=== PATIENT | male | born 1950 | race Caucasian/White ===

== ENCOUNTER → 2017-09-13 | Outpatient (CLI) | payer MEDICARE ==
[~2017-09-13] MED LIST: ASPIRIN81 M2 PO; CARVEDILOL6.25 MG PO; FUROSEMIDE 40 M40 M1 PO; K-DUR 20 MEQ T20 MEQ PO; LISINOPRIL10 MG PO; PRAVASTATIN SOD20 MG PO
--- NOTE | 2017-09-13 15:09 | 2DMMODE ---
[place] [address] 2 D/M-MODE ECHOCARDIOGRAM Name: LESLY COOLEY Room: [facility]#: [id number] Admission: 09/13/17 Attend Phys: Helder Ledesma, Discharge: Date of : 50 Date of Service: 09/13/17 1508 Report #: [id number] THIS REPORT FOR: //name// APPROVED REPORT Study performed: 09/13/2017 09:28:28 EXAM: Comprehensive 2D, Doppler, and color-flow Echocardiogram Patient Location: Out-Patient Status: routine BSA: 1.81 HR: 75 bpm BP: 108/80 mmHg Other Information Study Quality: Good Indications Cardiomyopathy 2D Dimensions LVEF(%): 70.54 (>50%) IVSd: 18.55 (7-11mm) LVOT Diam: 20.57 (18-24mm) LVDd: 46.92 mm PWd: 12.49 (7-11mm) Ascending Ao: 30.74 (22-36mm) LVDs: 28.18 (25-40mm) Aortic Root: 33.15 mm Harvey's LVEF: 70.54 % Volumes Left Atrial Volume (Systole) LA ESV Index: 22.30 mL/m2 Aortic Valve AoV Peak Manpreet.: 1.28 m/s AO Peak Gr.: 6.59 mmHg LVOT Max P.47 mmHg AO Mean Gr.: 3.52 mmHg LVOT Mean P.12 mmHg LVOT Max V: 0.79 m/s AO V2 VTI: 22.27 cm LVOT Mean V: 0.48 m/s OZ (VTI): 2.18 cm2 LVOT V1 VTI: 14.60 cm Mitral Valve E/A Ratio: 0.61 MV Decel. Time: 457.90 [place] [address] 2 D/M-MODE ECHOCARDIOGRAM Name: LESLY COOLEY Room: [facility]#: [id number] Admission: 09/13/17 Attend Phys: Helder Ledesma, Discharge: Date of : 50 Date of Service: 09/13/17 1508 Report #: [id number] MV E Max Manpreet.: 0.38 m/s MV PHT: 132.79 ms MVA (PHT): 1.66 cm2 TDI E/Lateral E': 2.38 E/Medial E': 7.60 Medial E' Manpreet.: 0.05 m/s Lateral E' Manpreet.: 0.16 m/s Pulmonary Valve PV Peak Manpreet.: 0.76 m/s PV Peak Gr.: 2.33 mmHg Tricuspid Valve TR Peak Gr.: 22.26 mmHg RVSP: 27.26 mmHg Left Ventricle The left ventricle is normal size. There is normal LV segmental wall motion. Mild concentric left ventricular hypertrophy. The left ventricular systolic function is normal. The left ventricular ejection fraction is within the normal range. LVEF is 55%. Grade I - abnormal relaxation pattern. Right Ventricle The right ventricle is normal size. The right ventricular systolic function is normal. Atria The left atrium size is normal. The right atrium size is normal. Aortic Valve Aortic valve leaflets are mildly thickened. Mild aortic regurgitation. There is no aortic valvular stenosis. Mitral Valve The mitral valve is normal in structure. Mild mitral regurgitation. No evidence of mitral valve stenosis. Tricuspid Valve The tricuspid valve is normal in structure. Mild tricuspid regurgitation. The RVSP is __27.3 mmHg. Pulmonic Valve The pulmonary valve is normal in structure. [place] [address] 2 D/M-MODE ECHOCARDIOGRAM Name: LESLY COOLEY Katia Room: [facility]#: [id number] Admission: 09/13/17 Attend Phys: Helder Ledesma, Discharge: Date of : 50 Date of Service: 09/13/17 1508 Report #: [id number] Great Vessels The aortic root is normal in size. IVC is normal in size and collapses with >50% inspiration Pericardium There is no pericardial effusion. <Conclusion> The left ventricle is normal size. Mild concentric left ventricular hypertrophy. The left ventricular systolic function is normal. The left ventricular ejection fraction is within the normal range. LVEF is 55%. Grade I - abnormal relaxation pattern. The right ventricle is normal size. The left atrium size is normal. Aortic valve leaflets are mildly thickened. Mild aortic regurgitation. There is no aortic valvular stenosis. The mitral valve is normal in structure. Mild mitral regurgitation. The tricuspid valve is normal in structure. Mild tricuspid regurgitation. The RVSP is __27.3 mmHg. IVC is normal in size and collapses with >50% inspiration There is no pericardial effusion. There is normal LV segmental wall motion. <ELECTRONICALLY SIGNED> By: David Maldonado MD, FACC 09/13/17 1508 1508 1508 David Maldonado MD, FACC /INF
== END ==
LOC: M.CRD 09:18
DX: I08.3 Combined rheumatic disorders of mitral, aortic and tricuspid valves (principal); I42.8 Other cardiomyopathies

== ENCOUNTER → 2019-01-08 | Outpatient (CLI) | payer MEDICARE ==
--- NOTE | 2019-01-08 14:49 | 2DMMODE ---
[place] [address] 2 D/M-MODE ECHOCARDIOGRAM Name: LESLY COOLEY Room: [facility]#: [id number] Admission: 01/08/19 Attend Phys: Helder Ledesma, Discharge: Date of : 50 Date of Service: 01/08/19 1449 Report #: [id number] THIS REPORT FOR: //name// APPROVED REPORT Study performed: 01/08/2019 07:56:43 EXAM: Comprehensive 2D, Doppler, and color-flow Echocardiogram Patient Location: Out-Patient BSA: 1.75 HR: 84 bpm BP: 108/80 mmHg Other Information Study Quality: Good Indications Cardiomyopathy 2D Dimensions IVSd: 13.10 (7-11mm) LVOT Diam: 20.24 (18-24mm) LVDd: 42.76 mm PWd: 11.87 (7-11mm) Ascending Ao: 27.87 (22-36mm) LVDs: 30.12 (25-40mm) Aortic Root: 25.90 mm Volumes Left Atrial Volume (Systole) LA ESV Index: 29.20 mL/m2 Aortic Valve AoV Peak Manpreet.: 1.34 m/s AO Peak Gr.: 7.23 mmHg LVOT Max P.65 mmHg AO Mean Gr.: 3.93 mmHg LVOT Mean P.17 mmHg LVOT Max V: 0.81 m/s AO V2 VTI: 23.71 cm LVOT Mean V: 0.49 m/s OZ (VTI): 1.80 cm2 LVOT V1 VTI: 13.24 cm Mitral Valve E/A Ratio: 0.59 MV Decel. Time: 414.39 ms MV E Max Manpreet.: 0.39 m/s MV PHT: 120.17 ms MVA (PHT): 1.83 [place] [address] 2 D/M-MODE ECHOCARDIOGRAM Name: LESLY COOLEY Room: [facility]#: [id number] Admission: 01/08/19 Attend Phys: Helder Ledesma, Discharge: Date of : 50 Date of Service: 01/08/19 1449 Report #: [id number] TDI E/Lateral E': 3.90 E/Medial E': 5.57 Medial E' Manpreet.: 0.07 m/s Lateral E' Manpreet.: 0.10 m/s Pulmonary Valve PV Peak Manpreet.: 1.12 m/s PV Peak Gr.: 5.06 mmHg Tricuspid Valve RAP Estimate: 5.00 mmHg TR Peak Gr.: 25.60 mmHg RVSP: 30.60 mmHg PA Pressure: 30.60 mmHg Left Ventricle The left ventricle is normal size. There is mild left ventricular systolic dyssynergy consistent with underlying bundle branch block Mild concentric left ventricular hypertrophy. Left ventricular systolic function is Preserved. LVEF is 55-60%. Transmitral Doppler flow pattern suggests impaired LV relaxation. Right Ventricle The right ventricle is normal size. The right ventricular systolic function is normal. Atria The left atrium size is normal. The right atrium size is normal. Aortic Valve Aortic valve leaflets are mildly thickened. Mild aortic regurgitation. There is no aortic valvular stenosis. Mitral Valve The mitral valve is normal in structure. Trace mitral regurgitation. No evidence of mitral valve stenosis. Tricuspid Valve The tricuspid valve is normal in structure. Mild tricuspid regurgitation. The RVSP is 30-35 mmHg. Pulmonic Valve The pulmonary valve is normal in structure. There is no pulmonic valvular regurgitation[place] [address] 2 D/M-MODE ECHOCARDIOGRAM Name: LESLY COOLEY Room: [facility]#: [id number] Admission: 01/08/19 Attend Phys: Helder Ledesma, Discharge: Date of : 50 Date of Service: 01/08/19 1449 Report #: [id number] The aortic root is normal in size. IVC is normal in size and collapses >50% with inspiration. Pericardium There is no pericardial effusion. <Conclusion> The left ventricle is normal size. Mild concentric left ventricular hypertrophy. Left ventricular systolic function is Preserved. LVEF is 55-60%. Transmitral Doppler flow pattern suggests impaired LV relaxation. There is mild left ventricular systolic dyssynergy consistent with underlying bundle branch block Aortic valve leaflets are mildly thickened. Trace mitral regurgitation. Mild tricuspid regurgitation. The RVSP is 30-35 mmHg. IVC is normal in size and collapses >50% with inspiration. <ELECTRONICALLY SIGNED> By: Helder Ledesma MD, FACC 01/08/19 1449 1449 1449 Helder Ledesma MD, FACC /INF
== END ==
LOC: M.CRD 07:55
DX: I08.2 Rheumatic disorders of both aortic and tricuspid valves (principal)

== ENCOUNTER 2019-06-13 11:39 | Emergency (ER) | payer MEDICARE ==
[~2019-06-13] VITALS: Ht 167.6 cm; Wt 63.5 kg
[2019-06-13] MEDS ORDERED: CARVEDILOL12.5 MG PO (11:54)
[2019-06-13] MEDS ORDERED: METFORMIN HCL500 M3 PO (11:54)
[2019-06-13] MEDS ORDERED: TRIAMTERENE/HCT1 CA1 PO (11:54)
[2019-06-13] MEDS ORDERED: LISINOPRIL20 MG PO (11:54)
[2019-06-13] MEDS ORDERED: NEURONTIN100 MG PO (11:55)
[2019-06-13] MEDS ORDERED: MAPAP500 MG PO (11:55)
[2019-06-13 12:00] LABS: URINE BILIRUBIN NEGATIVE (Negative); URINE BLOOD 2+ (Negative); URINE CLARITY CLEAR; URINE COLOR YELLOW; URINE GLUCOSE-RANDOM NEGATIVE (Negative); URINE KETONES NEGATIVE (Negative); URINE LEUKOCYTES-REFLEX 1+ (Negative); URINE NITRITE-REFLEX NEGATIVE (Negative); URINE PROTEIN 2+ (Negative); URINE UROBILINOGEN 0.2 E.U./dl (0.2-1.0)
[2019-06-13 12:10] LABS: ABSOLUTE BASOPHILS 0.1 thou/uL (0.0-0.2); ABSOLUTE LYMPHOCYTES 0.9 thou/uL (0.8-5.3); ABSOLUTE MONOCYTES 0.5 thou/uL (0.0-1.2); ABSOLUTE NEUTROPHILS 7.4 thou/uL (1.6-8.1); BASOPHILS 0.6 %; EOSINOPHILS 0.5 %; HEMATOCRIT 33.4 % (42.0-52.0); HEMOGLOBIN 11.6 gm/dL (14.0-18.0); LYMPHOCYTES 9.9 %; MCH 30.8 pg (26.0-34.0); MCHC 34.9 g/dL (28.0-37.0); MCV 88.2 fL (80.0-100.0); MONOCYTES 5.4 %; MPV 6.8 fl. (7.2-11.1); NUCLEATED RBCS 0 /100WBC; PLATELET COUNT* 348 thou/uL (150-400); POLYS 83.6 %; RBC 3.79 mil/uL (4.50-6.00); RDW-CV 13.4 % (10.5-14.5); WBC 8.9 thou/uL (4.0-11.0)
[2019-06-13 12:10] LABS: SQUAMOUS NONE SEEN /LPF (0-3); WBC CLUMPS Few (None Seen)
[2019-06-13 12:12] LABS: CRYSTALS None Seen /LPF (None Seen); HYALINE CASTS 0-3 Few /LPF (None Seen); MUCUS 0-3 Light strn/LPF (None Seen)
[2019-06-13 12:17] LABS: CALCIUM 8.5 mg/dL (8.5-10.1); CREATININE 1.2 mg/dL (0.6-1.3); POTASSIUM 4.5 mmol/L (3.5-5.1)
[2019-06-13 12:21] LABS: ALBUMIN 3.4 g/dL (3.4-5.0); TOTAL BILIRUBIN 0.4 mg/dL (<0.1-1.0); TOTAL PROTEIN 6.9 g/dL (6.4-8.2)
[2019-06-13] MEDS ORDERED: KEFLEX500 M2 PO (12:59)
[2019-06-13] MEDS ORDERED: FLOMAX0.4 MG PO (13:04)
[2019-06-13 13:07] VITALS: BP 121/75
== END 2019-06-13 13:08 | disposition home or self-care (01) ==
LOC: M.ERS 11:39
PROVIDERS: Emergency Medicine
DX: N39.0 Urinary tract infection, site not specified (principal); Z98.890 Other specified postprocedural states

== ENCOUNTER → 2019-08-12 | Day surgery (SDC) | payer MEDICARE ==
[~2019-08-12] MED LIST changes: +ASA81BEC PO; +CARVEDILOL12.5 MG PO; +FLOMAX0.4 MG PO; +KEFLEX500 M2 PO; +LISINOPRIL20 MG PO; +MAPAP500 MG PO; +METFORMIN HCL500 M3 PO; +NEURONTIN100 MG PO; +OXAYDO5 MG PO; +TRIAMTERENE/HCT1 CA1 PO
--- NOTE | ~2019-08-12 | OP ---
[address] [address] OPERATIVE REPORT Name: LESLY COOLEY Room: [facility]#: [id number] Admission: 08/12/19 Attend Phys: Pablo Gallegos DO Discharge: Date of : 50 Report #: [id number] THIS REPORT FOR: //name// cc: Ja Mckeon Karl ~ THIS REPORT FOR: //name// CC: Pablo Mckeon DATE OF SERVICE: 08/12/2019 REFERRING PHYSICIAN: Dr. Ja Mckeon. PREOPERATIVE DIAGNOSIS: Left inguinal hernia. POSTOPERATIVE DIAGNOSIS: Left and right direct and indirect inguinal hernias. PROCEDURE: A da Zonia robotic-assisted laparoscopic bilateral inguinal hernia repair with mesh. SURGEON: Pablo Gallegos DO SHIRT MAKER: Gab Baron DO, PGY3, resident. SECOND CUT IN WORKER: Student, Dr. Jolanta Orosco, MS3. ANESTHESIA: General endotracheal. ESTIMATED BLOOD LOSS: Less than 20 mL. COMPLICATIONS: None. DESCRIPTION OF PROCEDURE: After obtaining proper consents and discussing risks and complications with the patient, he was taken to the operating room, laid in the supine position, administered general endotracheal anesthetic. He was then prepped and draped in the usual sterile fashion. A timeout was performed. We confirmed the appropriate patient and procedure. Preoperative antibiotics were given. SCDs were in place. The site had been marked in the preoperative holding area as well. We then made a small supraumbilical skin incision with #11 scalpel blade. This was carried down through the skin into the subcutaneous tissue using electrocautery for hemostasis. Once the fascia was encountered, it was incised along the midline, grasped and elevated with Ashlyn clamps. The peritoneum was then bluntly opened using a hemostat. The peritoneum was bluntly opened using a hemostat. We then placed 2-0 Vicryl sutures in a [id number] [address] OPERATIVE REPORT Name: LESLY COOLEY Room: [facility]#: [id number] Admission: 08/12/19 Attend Phys: Pablo Gallegos, DO Discharge: Date of : 50 Report #: [id number] fashion to secure the da Zonia camera port, which was then inserted and insufflation was begun. Once insufflation was complete, full visual inspection of the anterior abdominal organs was performed. This immediately revealed a large indirect left inguinal hernia that did contain a sigmoid colon. I was able to manually reduce the loop of sigmoid colon that was up into the hernia without difficulty. After the patient was paralyzed and under direct vision, we then identified that there was also a direct inguinal hernia on this side. We also identified a smaller direct and small indirect inguinal hernia on the patient's right side. Since we had discussed repair of bilateral hernias if he did have them, we proceeded with a da Zonia robotic-assisted bilateral hernia repair by placing another 8.5 mm trocar in the left upper quadrant, a 12 mm trocar was placed in the right upper quadrant. We then docked the da Zonia robot. Once the robot was docked, the camera was inserted. We then placed monopolar scissors in the right upper quadrant bipolar fenestrated grasper in the left upper quadrant. I then broke scrub and went on console. Once on console, I was able to open the peritoneum from the median umbilical ligament laterally to the ASIS first on the left side. I then dissected all the way down medially in the preperitoneal space to the pubic ramus. We did identify a smaller direct inguinal hernia in this area, there was a very large indirect inguinal hernia and I had to dissect laterally first and then with my surgical supply assistant using bimanual palpation to reduce the hernia sac. I was able to dissect the hernia sac with some difficulty. We did tear the hernia sac at one point and left that for repair at the end of the procedure. I was able to reduce the entire hernia sac back and create a large enough space for a large Bard 3DMax mesh. I then turned my attention to the right side. Similarly, I opened the peritoneum from the median umbilical ligament laterally to the ASIS. I was able to dissect all the way down to the pubic ramus and again find a small direct inguinal hernia. I then continued my dissection laterally until I identified the spermatic cord and dissected the indirect inguinal hernia sac free from the cord. I then continued the dissection laterally all the way out to the ASIS. There was no cord lipoma noted on the right side. There was a small cord lipoma on the left side, which was reduced back into the peritoneal cavity using blunt dissection and electrocautery. We then placed a large Bard 3DMax mesh on the left side and right side. The meshes were sutured in place medially at Wade's ligament using a 2-0 Vicryl suture. I then also sutured the mesh and placed medial and lateral to the inferior epigastric vessels using 2-0 Vicryl suture. I then closed the peritoneum starting on the left side using a running 2-0 absorbable V-Loc suture. Next, I repaired the defect in the peritoneum using 2-0 Vicryl in a running fashion. Next, after the mesh was sutured in placed on the patient's right side, we closed the peritoneum using a running 2-0 absorbable V-Loc suture. There was a small peritoneal defect on this side as well that occurred during the dissection of the hernia sac and I closed this using 2 interrupted 2-0 Vicryl sutures in a [id number] fashion. We then removed all the needles, undocked the robot. The trocars were all removed. We did use a PMI closure device to close the 12 mm right upper quadrant fascia. I then removed the umbilical port and closed the fascia there using the 2 [place] [address] OPERATIVE REPORT Name: LENORALESLY BRANDON Room: [facility].#: [id number] Admission: 08/12/19 Attend Phys: Pablo Gallegos DO Discharge: Date of : 50 Report #: [id number] previously placed 0 Vicryl sutures plus an additional 0 Vicryl suture. Skin incisions were all closed using 4-0 Monocryl subcuticular stitches and Dermabond. The patient was awakened in the operating room. Tap blocks were also performed by Anesthesia at this time and then he was transported to the recovery room in stable condition. By: [id number] Gallegos DO /nt
[2019-08-12 06:48] LABS: HEMATOCRIT 34.2 % (42.0-52.0); HEMOGLOBIN 11.8 gm/dL (14.0-18.0); MCH 30.6 pg (26.0-34.0); MCHC 34.5 g/dL (28.0-37.0); MCV 88.8 fL (80.0-100.0); MPV 7.6 fl. (7.2-11.1); RBC 3.85 mil/uL (4.50-6.00); RDW-CV 14.2 % (10.5-14.5); WBC 3.8 thou/uL (4.0-11.0)
[2019-08-12 07:00] LABS: CALCIUM 8.2 mg/dL (8.5-10.1); CREATININE 0.9 mg/dL (0.6-1.3)
--- NOTE | 2019-08-12 09:14 | EKG ---
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1950 Requested By: Pablo Gallegos Order Number: [id number] Reading MD: Cruz Alvares Measurements Intervals [place] Rate: 54 P: 26 PA: 207 QRS: -44 QRSD: 128 T: -38 QT: 500 QTc: 474 Interpretive Statements Sinus rhythm left axis nonspecific t wave changes Baseline wander in lead(s) V2 Compared to ECG 10/09/2011 03:45:48 Left ventricular hypertrophy no longer present Electronically Signed On 08-12-2019 9:12:49 CDT by Cruz Alvares [email or web address] <ELECTRONICALLY SIGNED> By: Cruz Alvares MD, [facility] 08/12/19 0912 07 6 Cruz Alvares MD, [facility] /EPI
== END | disposition home or self-care (01) ==
LOC: M.SUR 06:18
PROVIDERS: Surgery
DX: K40.20 Bilateral inguinal hernia, without obstruction or gangrene, not specified as recurrent (principal); Z98.890 Other specified postprocedural states; Z79.899 Other long term (current) drug therapy